=== PATIENT | female | born 1965 | race Caucasian/White ===

== ENCOUNTER 2017-03-15 11:50 | Day surgery (SDC) | payer OTHER ==
[~2017-03-15] VITALS: Ht 147.3 cm; Wt 66.9 kg
[2017-03-15 12:51] VITALS: Ht 147.3 cm; Wt 66.9 kg
[2017-03-15] MEDS ORDERED: bp med (13:00)
[2017-03-15 13:20] VITALS: BP 116/79; PULSE 78; RESP 12
[2017-03-15] MEDS ORDERED: FENTAnyl 50 MCG/ML VIAL ONE (14:17)
[2017-03-15] MEDS ORDERED: MIDAZOLAM 1 MG/ML 2 ML INJ ONE (14:17)
--- NOTE | 2017-03-15 14:31 | GILP ---
DATE OF PROCEDURE: 03/15/2017 NAME OF PROCEDURE: Colonoscopy. SURGEON: Soham Gee MD PREOPERATIVE DIAGNOSIS: Rectal bleeding. POSTOPERATIVE DIAGNOSES: 1. Colonoscopy all the way to the cecum. 2. Melanosis coli. 3. Internal hemorrhoids. 4. No colon neoplasm was identified. INDICATION FOR THE PROCEDURE: Ms. Candida Crump is a 51-year-old female patient who had rectal bleedin g. She never had a screening colonoscopy. The procedure and possible complications were well explained to the patient. The patient understood and consented to the procedure. DESCRIPTION OF PROCEDURE: Under the influence of fentanyl and Versed, the colonoscope was carefully introduced in the rectum and under direct vision, it was advanced all the way to the cecum. FINDINGS: The patient was noted to have melanosis coli. She also had internal hemorrhoids. No col on neoplasm was identified. She tolerated the procedure very well and there was no complication from the procedure. At the end of the procedure, she was awake with stable vital signs and she was discharged home to the care of h er family. IMPRESSION: 1. Colonoscopy all the way to the cecum. 2. Internal hemorrhoids. 3. Melanosis coli. PLAN: 1. Anusol-HC 2.5% cream at bedtime p.r.n. 2. Next screening colonoscopy in 10 years. Dictated By: SOHAM ARREAGA/MARCIO Conf#: [id number] DID#: [id number] CC: SOHAM GEE MD;*EndCC*
[2017-03-15 14:59] VITALS: BP 117/83; PULSE 74; RESP 19
== END 2017-03-15 16:33 | disposition home or self-care (01) ==
LOC: GIL 11:50
PROVIDERS: ATTEND Internal Medicine Gastroenterology
DX: K64.8 Other hemorrhoids (principal); L81.4 Other melanin hyperpigmentation; I10 Essential (primary) hypertension
CPT/HCPCS: 45378; J2250; J3010; Z7610